=== PATIENT | female | born 1975 | race Caucasian/White ===

== ENCOUNTER → 2023-07-25 | Outpatient (CLI) | payer OTHER, BC, SELFPAY ==
--- NOTE | 2023-07-25 | BRBX_PTH ---
PATHOLOGY RESULTS PATIENT: NAGA LAMA LOC: [facility] U#:[id number] AGE/SX: 47/F ROOM: RE07/25/[address]: Shikha Dudley PA-C : 1975 BED: DIS: 07/25/2023 SPEC #: [id number] RECD: 07/25/23 13:29 STATUS: ROWAN REQ #: [id number] YASMEEN: 07/25/23 00:[address]: Gokul Gay DEPT: SURGICAL PATHOLOGY RECD BY: Zia Headley ENTERED: 07/25/23 13:29 SP TYPE: BREAST BX OTHR DR: Shikha Dudley PA-C Tissues: Right breast, NOS Procedures: Surgery Specimen Level IV Comments: @ Ordering doctor for SUIV edited from KAILA to @ naheed HE at 07/26/23 075 @ Submitting doctor edited from KAILA to DR.RCEBUL Annemarie HE at 07/26/23 0751 HEADER OPERATION: Right breast biopsy PRE-OP DIAGNOSIS: Right breast mass TISSUE SUBMITTED: Right breast tissue MICROSCOPIC DIAGNOSIS Right breast mass, core biopsy: Fibrocystic change. No evidence of malignancy. AM:kylah 07/26/2023 MICROSCOPIC DESCRIPTION Slides are reviewed. GROSS DESCRIPTION Received in fixative is one container labeled with the patient's name and designated right breast. The specimen consists of two elongated fragments of light conn soft tissue measuring in aggregate 1.0 x 0.2 x 0.1 cm. The specimen is totally submitted in one cassette. / AM:kylah 07/25/2023 TC:5 Ischemic Time: 1 minute Fixation Time: 12.5 hours CPT: 62551
--- NOTE | 2023-07-25 08:06 | BI_ITS ---
MAMMOGRAPHY - UNILATERAL DIAGNOSTIC: RIGHT BREAST REASON FOR EXAM: Female, 47 years old. Postbiopsy tissue clip marker placement. PERTINENT HISTORY: Non-contributory. TECHNIQUE: Digital unilateral breast bashir (3D mammographic acquisition) in the CC and MLO projections. 2-D mediolateral oblique (MLO) and craniocaudad (CC) views of both breasts were obtained. CAD: Full Field Digital Mammography with Computer Added Detection was performed. COMPARISON: None. FINDINGS: Breast Composition: The breasts are heterogeneously dense, which may obscure small masses. A tissue clip marker is seen in the upper slightly lateral aspect of the right breast. A second tissue clip marker is seen in the upper lateral aspect of the right breast as well. No other significant abnormalities are identified. BI/DIAG MAMM W/CAD, UNILAT IMPRESSION: Status post right breast biopsy. 2 tissue markers are seen in the upper lateral aspect of the right breast. ASSESSMENT CATEGORY: BIRADS Category 2: Benign. A letter regarding these results will be sent to the patient by the facility within 30 days. Approximately 10% of breast cancers are not detected by mammography. A normal mammogram should not delay biopsy of a clinically suspicious abnormality. Electronically Signed: Francisco J Jenkins MD at 10:57 EST ,
== END | disposition home or self-care (01) ==
PROVIDERS: PCP Nurse Practitioner Family; Referring Provider Physician Assistant; Visit Provider Physician Assistant
DX: N63.10 Unspecified lump in the right breast, unspecified quadrant (principal)
CPT/HCPCS: 77065; 88305

== ENCOUNTER → 2024-01-12 | Outpatient (CLI) | payer OTHER, BC, SELFPAY ==
--- NOTE | 2024-01-12 09:26 | BI_ITS ---
MAMMOGRAPHY - UNILATERAL DIAGNOSTIC: RIGHT BREAST REASON FOR EXAM: Female, 48 years old. Six-month follow-up for right ultrasound-guided breast biopsy. PERTINENT HISTORY: Non-contributory. TECHNIQUE: Digital unilateral breast bashir (3D mammographic acquisition) in the CC and MLO projections. 2-D mediolateral oblique (MLO) and craniocaudad (CC) views of both breasts were obtained. CAD: Full Field Digital Mammography with Computer Added Detection was performed. COMPARISON: Comparison is made with prior study dated July 25, 2023. FINDINGS: Breast Composition: The breasts are heterogeneously dense, which may obscure small masses. There is a 6.8 mm x 6.8 mm nodular density deep in the upper slightly lateral aspect of the right breast. Correlation with ultrasound is recommended for further evaluation. Once again, 2 tissue markers are seen in the upper lateral aspect of the right breast. No other significant abnormalities are identified. BI/DIAG MAMM W/CAD, UNILAT IMPRESSION: 6.8 mm x 6.8 mm nodular density deep in the upper slightly lateral aspect of the right breast as described. Correlation with ultrasound is recommended. Status post right breast biopsies. ASSESSMENT CATEGORY: BIRADS Category 0: Incomplete. Need additional imaging evaluation. A letter regarding these results will be sent to the patient by the facility within 30 days. Approximately 10% of breast cancers are not detected by mammography. A normal mammogram should not delay biopsy of a clinically suspicious abnormality. Electronically Signed: Francisco J Jenkins MD at 10:48 EDT ,
--- NOTE | 2024-01-12 10:22 | US_ITS ---
STUDY: ULTRASOUND BREAST - RIGHT REASON FOR EXAM: Female, 48 years old. Abnormal screening mammogram. TECHNIQUE: Axial and longitudinal images of the RIGHT breast were performed with a high resolution ultrasound transducer. # OF IMAGES: 43 COMPARISON: Comparison is made with prior mammogram done earlier in the day. FINDINGS: RIGHT Breast: The lateral half of the right breast was examined with ultrasound. There is heterogeneously dense fibroglandular tissue. No sonographic abnormality is seen. Additional mammographic images will be obtained. US/Breast Limited Unilateral IMPRESSION: The lateral half of the right breast was examined with ultrasound. No sonographic abnormality is seen. Additional mammographic views will be obtained. ASSESSMENT CATEGORY: BIRADS Category 0: Incomplete. Need additional imaging evaluation. A letter regarding these results will be sent to the patient by the facility within 30 days. Electronically Signed: Francisco J Jenkins MD at 14:19 EDT ,
== END | disposition home or self-care (01) ==
LOC: OPBI 09:20
PROVIDERS: PCP Nurse Practitioner Family; Referring Provider Physician Assistant; Visit Provider Physician Assistant
DX: R92.8 Other abnormal and inconclusive findings on diagnostic imaging of breast (principal)
CPT/HCPCS: 76642; 77061; 77065; G0279

== ENCOUNTER → 2024-02-14 | Outpatient (CLI) | payer OTHER, BC, SELFPAY ==
--- NOTE | 2024-02-14 06:38 | MRI_ITS ---
STUDY: BILATERAL BREAST MR WITHOUT AND WITH CONTRAST REASON FOR EXAM: Female, 48 years old. Abnormality in right breast. Workup. TECHNIQUE: Multi-sequence multi-echo imaging of both breasts was performed with a dedicated breast coil. T1-weighted and T2-weighted images were performed before the administration of contrast. T1-weighted images were also performed after the intravenous administration of 27 mL of Clariscan contrast. COMPARISON: Breast ultrasound dated January 12, 2024 and bilateral mammograms dated November 09, 2022, July 04, 2023, left and right compression spot views July 20, 2023, right diagnostic mammogram dated January 12, 2024 and right breast ultrasound January 12, 2024. FINDINGS: RIGHT BREAST: Scattered fibroglandular densities with minimal background enhancement. No abnormal enhancing masses or areas of non-mass enhancement in the right breast. LEFT BREAST: Scattered fibroglandular densities with minimal background enhancement. No abnormal enhancing masses or areas of non-mass enhancement in the left breast. No enlarged or abnormal lymph nodes. No abnormality in the visualized regions of the chest or liver. MRI/Breast Bilateral W/O and W IMPRESSION: No abnormality on the breast MRI without and with contrast. A six-month right diagnostic mammogram and repeat right breast ultrasound would be appropriate. CATEGORY: BIRADS Category 3: Probably Benign - Short-Interval Follow-up Suggested. A letter regarding these results will be sent to the patient by the facility within 30 days. Electronically Signed: Anival Tolliver MD at 9:19 EDT ,
[2024-02-14 07:20] LABS: CREATININE FINGERSTICK < 1.0 mg/dL (0.55-1.02); EGFR FINGERSTICK > 60.0000 mL/min (>60)
== END | disposition home or self-care (01) ==
LOC: MRI 06:28
PROVIDERS: PCP Nurse Practitioner Family; Referring Provider Surgery; Visit Provider Surgery
DX: N63.10 Unspecified lump in the right breast, unspecified quadrant (principal); R92.8 Other abnormal and inconclusive findings on diagnostic imaging of breast
CPT/HCPCS: 77049; A9575; A4216; C8908

== ENCOUNTER → 2024-08-28 | Outpatient (CLI) | payer OTHER, BC, SELFPAY ==
--- NOTE | 2024-08-28 09:26 | BI_ITS ---
EXAM: DIAG MAMM W/CAD, BILAT 08/28/2024 CLINICAL HISTORY: F, Age 48 y/o , ABNORMAL MAMMOGRAM OF RIGHT BREAST. Six-month follow-up. No family history. History of prior ultrasound-guided right breast biopsies. TECHNIQUE: Bilateral Diagnostic digital breast tomosynthesis with 2D and 3D images. Computer aided detection. COMPARISON: Prior exam(s) dated January 12, 2024.. FINDINGS: TISSUE DENSITY: The breast tissue is heterogenously dense, which may obscure small masses.. 2 tissue clip markers are seen in the upper lateral aspect of the right breast. Bilateral Breast Mammographic Findings: No significant masses, calcifications or other abnormalities are identified. No suspicious masses, areas of developing architectural distortion, or suspicious calcifications. There has been no significant interval change. BI/DIAG MAMM W/CAD, BILAT IMPRESSION: Right Breast: BIRADS 2 BENIGN FINDING. Left Breast: BIRADS 2 BENIGN FINDING. OVERALL FINAL ASSESSMENT: BIRADS 2 BENIGN FINDING. RECOMMENDATION: Routine annual follow-up in 1 Year A letter with findings and recommendations will be mailed to the patient. Reading Location: [id number]
== END | disposition home or self-care (01) ==
LOC: OPBI 09:23
PROVIDERS: PCP Nurse Practitioner Family; Referring Provider Surgery; Visit Provider Surgery
DX: R92.8 Other abnormal and inconclusive findings on diagnostic imaging of breast (principal)
CPT/HCPCS: 77062; 77066; G0279